=== PATIENT | male | born 1985 | race Caucasian/White ===

== ENCOUNTER 2019-06-18 00:45 | Emergency (ER) | payer MEDICAID ==
[~2019-06-18] VITALS: Ht 188 cm; Wt 95.3 kg
[2019-06-18 01:09] VITALS: BP_SYST 151
[2019-06-18] MEDS ORDERED: THOR10 PO (01:22)
[2019-06-18] MEDS ORDERED: ONDA4TAB5 PO (01:28)
[2019-06-18] MEDS ORDERED: LOSA50TA3 PO (01:29)
[2019-06-18] MEDS ORDERED: LIP40 PO (01:29)
[2019-06-18] MEDS ORDERED: SUCR1TAB78 PO (01:30)
[2019-06-18] MEDS ORDERED: AMITRIPTYLINE HCL 10 MG TABLET (ELAVIL) PO ONE (01:30)
[2019-06-18] MEDS ORDERED: AMITRIPTYLINE HCL 10 MG TABLET (ELAVIL) ONE (01:53)
[2019-06-18] MEDS ORDERED: LORazepam 1 MG TABLET PO ONE (02:00)
[2019-06-18 02:17] VITALS: BP_SYST 138
== END 2019-06-18 02:17 | disposition home or self-care (01) ==
LOC: SED 00:45
DX: R06.6 Hiccough (principal); Z88.0 Allergy status to penicillin
CPT/HCPCS: 99283

== ENCOUNTER 2019-11-13 04:13 | Emergency (ER) | payer MEDICAID ==
[~2019-11-13] VITALS: Ht 182.9 cm; Wt 108.9 kg
[~2019-11-13 04:13] MED LIST: LIP40 PO; LOSA50TA3 PO; ONDA4TAB5 PO; SUCR1TAB78 PO; THOR10 PO
[2019-11-13 04:28] VITALS: BP_SYST 148
[2019-11-13] MEDS ORDERED: MORPHINE 4 MG/ML INJ. SYRINGE IM ONE (05:15)
[2019-11-13] MEDS ORDERED: LORA-259 PO (07:22)
[2019-11-13] MEDS ORDERED: LEVE500T9 PO (07:22)
[2019-11-13] MEDS ORDERED: levETIRAcetam 500 MG TABLET ONE (09:10)
[2019-11-13 09:56] VITALS: BP_SYST 130
== END 2019-11-13 09:56 | disposition home or self-care (01) ==
LOC: SED 04:13
DX: C79.31 Secondary malignant neoplasm of brain (principal); C62.90 Malignant neoplasm of unspecified testis, unspecified whether descended or undescended; R51 Headache; Z85.9 Personal history of malignant neoplasm, unspecified; Z88.0 Allergy status to penicillin; Z79.899 Other long term (current) drug therapy
CPT/HCPCS: 96372; 99283; J2270